=== PATIENT | male | born 2005 | race Native Hawaiian/Other Pacific Islander ===

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

== ENCOUNTER 2024-02-10 22:34 | Outpatient (CLI) | payer MEDICAID | END 2024-02-10 23:59 | disposition critical access hospital (66) | LOC: EMS 22:34 | DX: Z04.6 Encounter for general psychiatric examination, requested by authority (principal); T39.1X2A Poisoning by 4-Aminophenol derivatives, intentional self-harm, initial encounter; R11.0 Nausea; R06.02 Shortness of breath; I49.9 Cardiac arrhythmia, unspecified | CPT/HCPCS: A0425; A0429; A0999 ==

== ENCOUNTER 2024-02-10 22:52 | Emergency (ER) | payer MEDICAID ==
[2024-02-10 23:16] LABS: BASOPHILS # (AUTO) 0.1 10^3/uL (0.0-0.1); BASOPHILS % (AUTO) 0.6 %; EOSINOPHILS # (AUTO) 0.1 10^3/uL (0.0-0.7); HCT - HEMATOCRIT 47.3 % (42.0-52.0); HGB - HEMOGLOBIN 16.1 g/dL (14.0-18.0); LYMPHOCYTES # (AUTO) 3.2 10^3/uL (1.5-3.5); LYMPHOCYTES % (AUTO) 39.8 %; MEAN CORPUSCULAR HEMOGLOBIN 29.4 pg (27.0-31.0); MEAN CORPUSCULAR VOLUME 86.5 fL (80.0-94.0); MEAN PLATELET VOLUME 9.6 fL (7.4-11.4); MONOCYTES # (AUTO) 0.5 10^3/uL (0.0-1.0); MONOCYTES % (AUTO) 6.3 %; NEUTROPHILS # (AUTO) 4.2 10^3/uL (1.5-6.6); NEUTROPHILS % (AUTO) 52.2 %; PLT - PLATELET COUNT 217 10^3/uL (130-450); RED BLOOD COUNT 5.47 10^6/uL (4.70-6.10); RED CELL DISTRIBUTION WIDTH 12.8 % (12.0-15.0); WHITE BLOOD COUNT 8.1 x10^3/uL (4.8-10.8)
[2024-02-10 23:16] LABS: BILIRUBIN,URINE NEGATIVE (NEGATIVE); GLUCOSE, URINE (UA) NEGATIVE (NEGATIVE); KETONES,URINE (UA) NEGATIVE (NEGATIVE); LEUKOCYTE ESTERASE, URINE NEGATIVE (NEGATIVE); NITRITE,URINE NEGATIVE (NEGATIVE); OCCULT BLOOD,URINE NEGATIVE (NEGATIVE); PROTEIN,URINE NEGATIVE (NEGATIVE); UROBILINOGEN,URINE 0.2 (NORMAL) E.U./dL (NORMAL)
[2024-02-10 23:22] LABS: MAGNESIUM 1.7 mg/dL (1.7-2.3)
[2024-02-10 23:29] LABS: ACETAMINOPHEN 16.7 ug/mL; ALBUMIN 4.6 g/dL (3.2-5.5); ALBUMIN/GLOBULIN RATIO 1.4 (1.0-2.2); ALKALINE PHOSPHATASE 64 IU/L (42-121); ALT ALANINE AMINOTRANSFERASE 27 IU/L (10-60); AST ASPARTATE AMINOTRANSFERASE 22 IU/L (10-42); BILIRUBIN,TOTAL 1.1 mg/dL (0.2-1.0); BUN - BLOOD UREA NITROGEN 14 mg/dL (6-20); CALCIUM 10.1 mg/dL (8.5-10.3); CARBON DIOXIDE - CO2 25 mmol/L (21-32); CHLORIDE 106 mmol/L (101-111); CK- CREATINE KINASE 277 IU/L (30-223); ETOH - ETHANOL < 10.0 mg/dL; GFR - MDRD 95 (>89); GLUCOSE 103 mg/dL (74-104); LIPASE 28 U/L (11-82); POTASSIUM 3.4 mmol/L (3.5-4.5); SALICYLATE 14.2 mg/dL; SODIUM 140 mmol/L (135-145); TOTAL PROTEIN 7.8 g/dL (6.4-8.9)
--- NOTE | 2024-02-10 23:31 | ED Physician Documentation ---
PD HPI MHE - Stated complaint Stated Complaint: OD/SA - Chief complaint Chief Complaint: MHE - History obtained from History obtained from: Patient - History of Present Illness Primary symptom: Suicide attempt, Self harm - OD (took 18 excedrin pills containing 250mg tylenol, 250mg aspirin, caffeine 65mg) Timing - onset: Today (between 7-8pm) Contributing factors: Sig other (recent breakup) Similar symptoms before: No diagnosis Recently seen: Not recently seen PD PAST MEDICAL HISTORY - Past Medical History Cardiovascular: None Respiratory: Asthma Endocrine/Autoimmune: None GI: None : None HEENT: None Psych: None Musculoskeletal: None Derm: None - Past Surgical History Past Surgical History: No - Present Medications Home Medications: Ambulatory Orders Medication Instructions Recorded Confirmed No Known Home Medications 02/10/24 02/10/24 - Allergies Allergies/Adverse Reactions: Allergies Allergy/AdvReac Type Severity Reaction Status Date / Time ibuprofen [From Motrin] Allergy Severe Respiratory Verified 02/10/24 23:00 - Social History Does the pt smoke?: No Smoking Status: Never smoker Does the pt drink ETOH?: No Does the pt have substance abuse?: No - Immunizations Immunizations are current?: Yes - POLST Patient has POLST: No PD ED PE NORMAL - Vitals Vital signs reviewed: Yes - General General: Alert and oriented X 3, No acute distress, Well developed/nourished - HEENT HEENT: Atraumatic, PERRL, EOMI, Moist mucous membranes, Pharynx benign - Neck Neck: Supple, no meningeal sign - Cardiac Cardiac: RRR - Respiratory Respiratory: No respiratory distress, Clear bilaterally - Abdomen Abdomen: Non tender, Non distended - Derm Derm: Normal color, Warm and dry - Extremities Extremities: No deformity - Neuro Neuro: Alert and oriented X 3, No motor deficit, No sensory deficit, Normal speech - Psych Psych: Other (depressed mood and affect) Results - Vitals Vitals: Vital Signs - 24 hr 02/10/24 02/11/24 23:01 01:30 Temperature 36.9 C Heart Rate 54 L 48 L Respiratory 17 16 Rate Blood Pressure 133/74 H 116/53 L O2 Saturation 100 100 Oxygen O2 Source Room air - EKG (time done) 2318 EKG releavant findings:: EKG personally interpreted by author of this note. Relevant findings are: Rate: Rate (enter#) (49) Rhythm: Sinus bradycardia [place]: Normal Intervals: Normal [place] QRS: Normal Ischemia: ST elevation c/w repol - Labs Labs: Laboratory Tests 02/10/24 02/10/24 02/10/24 23:02 23:04 23:04 WBC 8.1 RBC 5.47 Hgb 16.1 Hct 47.3 MCV 86.5 MCH 29.4 MCHC 34.0 RDW 12.8 Plt Count 217 MPV 9.6 Neut # (Auto) 4.2 Lymph # (Auto) 3.2 [place] # (Auto) 0.5 Eos # (Auto) 0.1 Baso # (Auto) 0.1 Absolute Nucleated RBC 0.00 Nucleated RBC % 0.0 Sodium 140 Potassium 3.4 L Chloride 106 Carbon Dioxide 25 Anion Gap 9.0 BUN 14 Creatinine 1.0 Estimated GFR (MDRD) 95 Glucose 103 Calcium 10.1 Magnesium 1.7 Total Bilirubin 1.1 H AST 22 ALT 27 Alkaline Phosphatase 64 Total Creatine Kinase 277 H Total Protein 7.8 Albumin 4.6 Globulin 3.2 Albumin/Globulin Ratio 1.4 Lipase 28 TSH 3.15 Urine Color YELLOW Urine Clarity CLEAR Urine pH 6.0 Ur Specific [place] 1.025 Urine Protein NEGATIVE Urine Glucose (UA) NEGATIVE Urine Ketones NEGATIVE Urine Occult Blood NEGATIVE Urine Nitrite NEGATIVE Urine Bilirubin NEGATIVE Urine Urobilinogen 0.2 (NORMAL) Ur Leukocyte Esterase NEGATIVE Ur Microscopic Review NOT INDICATED Urine Culture Comments NOT INDICATED Salicylates 14.2 Urine Opiates Screen NEGATIVE Ur Buprenorphine Scrn NEGATIVE Ur Oxycodone Screen NEGATIVE Urine Methadone Screen NEGATIVE Acetaminophen 16.7 Ur Barbiturates Screen NEGATIVE Ur Tricyclics Screen NEGATIVE Ur Phencyclidine Scrn NEGATIVE Ur Amphetamine Screen NEGATIVE U Methamphetamines Scrn NEGATIVE U Benzodiazepines Scrn NEGATIVE Urine Cocaine Screen NEGATIVE U Cannabinoids Screen NEGATIVE Ur Drug Screen Comment CUTOFF CONC BELOW: Ethyl Alcohol < 10.0 SARS-CoV-2 (PCR) 02/10/24 02/11/24 02/11/24 23:10 00:54 02:54 WBC RBC Hgb Hct MCV MCH MCHC RDW Plt Count MPV Neut # (Auto) Lymph # (Auto) [place] # (Auto) Eos # (Auto) Baso # (Auto) Absolute Nucleated RBC Nucleated RBC % Sodium Potassium Chloride Carbon Dioxide Anion Gap BUN Creatinine Estimated GFR (MDRD) Glucose Calcium Magnesium Total Bilirubin AST ALT Alkaline Phosphatase Total Creatine Kinase Total Protein Albumin Globulin Albumin/Globulin Ratio Lipase TSH Urine Color Urine Clarity Urine pH Ur Specific [place] Urine Protein Urine Glucose (UA) Urine Ketones Urine Occult Blood Urine Nitrite Urine Bilirubin Urine Urobilinogen Ur Leukocyte Esterase Ur Microscopic Review Urine Culture Comments Salicylates 14.8 15.7 Urine Opiates Screen Ur Buprenorphine Scrn Ur Oxycodone Screen Urine Methadone Screen Acetaminophen 17.3 Ur Barbiturates Screen Ur Tricyclics Screen Ur Phencyclidine Scrn Ur Amphetamine Screen U Methamphetamines Scrn U Benzodiazepines Scrn Urine Cocaine Screen U Cannabinoids Screen Ur Drug Screen Comment Ethyl Alcohol SARS-CoV-2 (PCR) NOT DETECTED 02/11/24 05:57 WBC RBC Hgb Hct MCV MCH MCHC RDW Plt Count MPV Neut # (Auto) Lymph # (Auto) [place] # (Auto) Eos # (Auto) Baso # (Auto) Absolute Nucleated RBC Nucleated RBC % Sodium Potassium Chloride Carbon Dioxide Anion Gap BUN Creatinine Estimated GFR (MDRD) Glucose Calcium Magnesium Total Bilirubin AST ALT Alkaline Phosphatase Total Creatine Kinase Total Protein Albumin Globulin Albumin/Globulin Ratio Lipase TSH Urine Color Urine Clarity Urine pH Ur Specific [place] Urine Protein Urine Glucose (UA) Urine Ketones Urine Occult Blood Urine Nitrite Urine Bilirubin Urine Urobilinogen Ur Leukocyte Esterase Ur Microscopic Review Urine Culture Comments Salicylates 17.1 Urine Opiates Screen Ur Buprenorphine Scrn Ur Oxycodone Screen Urine Methadone Screen Acetaminophen Ur Barbiturates Screen Ur Tricyclics Screen Ur Phencyclidine Scrn Ur Amphetamine Screen U Methamphetamines Scrn U Benzodiazepines Scrn Urine Cocaine Screen U Cannabinoids Screen Ur Drug Screen Comment Ethyl Alcohol SARS-CoV-2 (PCR) PD Medical Decision Making - ED course ED course: 18yM p/w depressed mood s/p breakup with SO, with attempted overdose on excedrin headache medicine. no prior psych history. contracts for safety in the ED. labs are benign aside from mildly elevated tylenol and asa levels. per poison control, plan to trend asa level and medically clear at 5am if downtrending. Will endorse to incoming daytime ED MD at 7am shift change for further mental health evaluation. Per poison control, since his asa level is not yet downtrending we will continue trending the level every 2 hours and give activated charcoal. If still uptrending, another dose in 2 hours. Plan to give bicarb if asa goes above 35. Will endorse to 7am physician. Departure - Departure Forms: PCP List
[2024-02-10 23:32] LABS: AMPHETAMINE SCREEN,URINE NEGATIVE (NEGATIVE); BARBITURATE SCREEN,UR NEGATIVE (NEGATIVE); BENZODIAZEPINES SCREEN, URINE NEGATIVE (NEGATIVE); BUPRENORPHINE SCREEN, URINE NEGATIVE (NEGATIVE); CLARITY,URINE CLEAR (CLEAR); COCAINE SCREEN URINE NEGATIVE (NEGATIVE); METHADONE SCREEN, URINE NEGATIVE (NEGATIVE); METHAMPHETAMINES SCREEN, URINE NEGATIVE (NEGATIVE); OPIATE SCREEN, URINE NEGATIVE (NEGATIVE); OXYCODONE SCREEN, URINE NEGATIVE (NEGATIVE); THC CANNABINOID SCREEN, URINE NEGATIVE (NEGATIVE); TRICYCLIC ANTIDEPRESSANT,URINE NEGATIVE (NEGATIVE)
[2024-02-10 23:43] LABS: THYROID STIMULATING HORMONE 3.15 uIU/mL (0.34-5.60)
[2024-02-11 01:20] LABS: ACETAMINOPHEN 17.3 ug/mL; SALICYLATE 14.8 mg/dL
[2024-02-11] MEDS: diphenhydrAMINE 25 MG CAPSULE PO STA (02:42)
[2024-02-11] MEDS: SODIUM CHLORIDE 0.9% 1,000 ML IV STA ×2 (06:56→07:21)
[2024-02-11] MEDS: CHARCOAL/SORBITOL 50 GM/240 ML PO STA (06:56)
[2024-02-11 08:17] LABS: CALCIUM 9.2 mg/dL (8.5-10.3); POTASSIUM 3.7 mmol/L (3.5-4.5); SALICYLATE 13.2 mg/dL
--- NOTE | 2024-02-11 10:26 | ED Physician Documentation ---
ED Addendum - Addendum Addendum: 02/11/24 10:22 The patient was signed out to me at change of shift, status post taking 18 tablets of Excedrin by his report after experiencing stress and bad memories after arriving here on [facility]. The patient grew up here and says that he has some bad memories of losing friends here including 1 good friend when he was 10. He thinks he never dealt with that and after living away in [place], he was hit with the memories when he came back. He also just broke up with his girlfriend, who lives here, about a month ago, And that has been bothering him also The patient was evaluated by the licensed social worker after he was. However, he states he has felt fine when he is down in [place] and his mainly been while he has been on [facility] that he has been feeling down break-up. The patient was found to have nontoxic Tylenol and salicylate levels, but the salicylate level w as found to still be progressively rising. Dr. Sapp had ordered charcoal overnight and this was given to the patient. He finally began to drop his levels on his 7:00 draw and had been asymptomatic the entire time. He was bradycardic when he came in which he did state was normal for him, and was noted to have somewhat of a fluctuating heart rate, both due to PACs and to his baseline low right in between. The patient was observed on the radio operator and although he has some periods of tachycardia down into the low 40s, he did not complain of any symptoms and these were very brief. The patient was cleared for mental health evaluation was seen by her licensed social worker Erin. He stated that he was not feeling suicidal and did not want to have an inpatient stay as he really wants to get back down to [place] so he can go back to work in a couple of days. He has agreed to meet with the intensive outpatient team for a home follow-up tomorrow and Social work feels he is cleared to do this. We have discussed that the patient should have a low threshold for return, should he feel at all suicidal or attempted to harm himself again. Final impression: See original note Disposition: Discharged home in stable and improved condition.
[2024-02-11 10:46] VITALS: BP 129/86; O2SAT 98
== END 2024-02-11 10:37 | disposition home or self-care (01) ==
LOC: EDUNIT# → ED 22:52
DX: T39.1X2A Poisoning by 4-Aminophenol derivatives, intentional self-harm, initial encounter (principal)
CPT/HCPCS: 36415; 80048; 80053; 80143; 80179; 80306; 81003; 82077; 82550; 83690; 83735; 84443; 85025; 87635; 93005; 99283; 99284; A9270; 81001; 87086